=== PATIENT | male | born 1955 | race Caucasian/White ===

== ENCOUNTER → 2021-11-14 09:26 | Outpatient (BNVA) | payer OTHER, SELFPAY | PROVIDERS: PCP Nurse Practitioner Family; Visit Provider Orthopaedic Surgery | DX: Z20.822 Contact with and (suspected) exposure to COVID-19 (principal) | CPT/HCPCS: 87635 ==

== ENCOUNTER 2021-11-21 16:24 | Observation (INO) | payer OTHER, SELFPAY ==
--- NOTE | 2021-11-19 12:46 | ECG_ITS ---
[facility] Test Date: 2021-11-19 Pat Name: Giovanni Boudreaux Department: Room: Gender: Male Cost Estimator: : 1955 Requested By: Lori Lara Order Number: [id number] Marlen MD: Abdullahi Bardales M.D. 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 [id number]
--- NOTE | 2021-11-19 13:11 | ANES.PREANE2 ---
Pre-Anesthetic Assessment Height/Weight: Height 1.78 m Weight 136.078 kg Preop Diagnosis: Spondylolisthesis L4-5 with lumbar stenosis L5-S1 Operation Date: 11/21/21 07:00 Proposed Procedures p Posterior Lumbar Interbody Fusion L4/5,L5/S1 [id number](Not Applicable) - David Rogers, DO Was Beta Jacobo taken within 24 hours: Yes (Patient instructed to take atenolol on DOS) Was Clonidine taken within 24 hours: N/A Social No alcohol and No tobacco Exam alert, oriented x 3 and regular rate & rhythm Breath sounds diminished b/l Airway Submandibular: within normal limits Cervical ROM: within normal limits Mallampati: Class III Dentition: chipped Comments: Comments: Missing teeth Pulmonary STOP BANG score of 7, never completed a sleep study advised by [facility] CV/HEM None reported METS = 4 None reported Hepatic None reported GI Gastroesophageal Reflux Disease Metabolic Morbid Obesity Musc/skel Osteoarthritis/DJD Neurogenic claudication Neuropsych Difficulty sleeping Anesthetic Plan ASA status: 3 (66 year old male with morbid obesity and limited functional capacity due to pain as well as high suspicion for NELY) Anesthesia: Anesthesia Evaluation and General Other: We discussed risk and benefits of general anesthesia including PONV, sore throat (sometimes severe), corneal abrasion, positioning and peripheral nerve injuries, life threatening allergic reaction, post operative ICU admission requiring prolonged intubation, stroke, heart attack, , and rare incidences of recall. Patient consents to proceed with general anesthesia. Risk of > 500 ml blood loss (7ml/kg in children): No Medications/Allergies Home Medications Medication Instructions Recorded Confirmed Last Taken Type allopurinol 100 mg tablet 200 mg PO DAILY 10/25/21 11/19/21 Unknown History atenolol 25 mg tablet 12.5 mg PO DAILY 10/25/21 11/19/21 Unknown History losartan 100 mg tablet 100 mg PO DAILY 10/25/21 11/19/21 Unknown History ropinirole 3 mg tablet 6 mg PO BEDTIME 10/25/21 11/19/21 Unknown History sildenafil 100 mg tablet 100 mg PO DAILY PRN 10/25/21 11/19/21 Unknown History amlodipine 10 mg tablet 10 mg PO DAILY 11/19/21 11/19/21 Unknown History Allergies Allergy/AdvReac Type Severity Reaction Status Date / Time hydrochlorothiazide Allergy Unknown UNKNOWN Verified 10/25/21 10:01 lisinopril Allergy Unknown UNKNOWN Verified 10/25/21 10:01 [facility] Anesthesia Social History Smoking and tobacco status: former smoker (20 years ) Data Anesthesia : 11/19/21 12:54 Cardiac Studies: No Data to Display
[2021-11-19 13:33] LABS: Basophils # 0.1 10^3/uL (0.0-0.1); Basophils % 1.1 %; Eosinophils # 0.2 10^3/uL (0.0-0.8); Eosinophils % 2.2 %; Hematocrit 45.8 % (42.0-52.0); Hemoglobin 15.3 g/dL (11.7-16.6); Lymphocytes # 1.8 10^3/uL (0.8-4.8); Mean Corpuscular HGB Conc 33.4 g/dL (30.0-36.0); Mean Corpuscular Hemoglobin 30.6 pg (28.0-34.0); Mean Corpuscular Volume 91.6 fl (80-94); Mean Platelet Volume 10.2 fL (7.4-10.4); Monocytes # 0.6 10^3/uL (0.2-0.9); Monocytes % 6.6 %; Neutrophils # 6.11 10^3/uL (1.8-7.7); Neutrophils % 69.6 %; Nucleated Red Blood Cells % 0 %; Platelet Count 260 10^3/cmm (130-400); Red Cell Distribution Width 13.7 % (12.1-15.1); White Blood Count 8.8 10^3/uL (4.0-10.0)
[2021-11-21] VITALS (16 sets, daily range): BP systolic 108–149; BP diastolic 64–93; PULSE 65–92; RESP 16–19; TEMP 36.2–36.7; O2SAT 91–99; BMI 46.7
--- NOTE | 2021-11-21 | SCC_ITS ---
Procedure done: 1.? L4/5 Interbody fusion with posterolateral fusion 2.? L5/S1 Interbody fusion with posterolateral fusion 3.? Instrumentation L4-S1 4. Cage at L4/5 5. Cage L5/S1 6. Laminectomy L4 for purpose of decompression of nerve 7. Laminectomy L5 for purpose of decompression of nerve 8. use of autograft from same incision 9. allograft 10. Bone marrow aspirate from right iliac crest through separate incision in fascia 11.? use of computer navigation/ stereotactic for spine 2 seconds of fluoroscopic guidance, for a cumulative dose of 88.7 mGy, was provided to Dr. Rogers by the radiology department. C-arm images of the lumbar spine were saved for the patient's permanent record. MATTHIEUD
--- NOTE | 2021-11-21 | XR_ITS ---
WS: [id number] Lumbar spine, C-arm fluoroscopy, 11/21/2021 Clinical Data: spinal stenosi with neurogenic claudication Comparison: None. Findings: Dr. Rogers performed a posterior lumbar fusion. XR/XR lumbar spine 2-3V* [id number] Impression: Posterior lumbar fusion.
[2021-11-21] MEDS: sodium chloride 0.9% 1,000 ML 30 ML IV (08:46)
--- NOTE | 2021-11-21 08:47 | P.ANESUD_ITS ---
Pre-Anesthetic Update Pre-Anesthetic Assessment: Date of Surgery/Procedure: 11/21/21 Preop Katheryn gnosis: Spondylolisthesis L4-5 with lumbar stenosis L5-S1 Proposed Procedure: Operation Date: 11/21/21 10:10 Proposed Procedures p Posterior Lumbar Interbody Fusion L4/5,L5/S1 [id number](Not Applicable) - David Rogers, DO Any changes to Pre-Anesthetic Assessment?: No Last Intake: Intake Last Liquid Date 11/20/21 Last Liquid Time 18:00 Last Solid Date 11/20/21 Last Solid Time 18:00 Labs Last 48hrs: Short CBC 11/19/21 Range/Units 12:54 WBC 8.8 (4.0-10.0) 10^3/ uL Hgb 15.3 (11.7-16.6) g/dL Hct 45.8 (42.0-52.0) % MCV 91.6 (80-94) fl Plt Count 260 (130-400) 10^3/c mm Neut % (Auto) 69.6 % Neut # (Auto) 6.11 (1.8-7.7) 10^3/u L Blood Bank 11/19/21 12:54 Blood Type A Positive Rho(D) Type Positive Antibody Screen Negative Vitals: Temperature 97.8 F 11/21/21 08:09 Temperature Source Temporal Artery S can 11/21/21 08:09 Pulse Rate 69 11/21/21 08:09 Pulse Rhythm 11/21/21 08:21 Pulse Strength 3+ Normal 11/21/21 08:21 Respiratory Rate 18 11/21/21 08:09 Blood Pressure 149/93 11/21/21 08:09 Blood Pressure Doris n 111 11/21/21 08:09 Pulse Oximetry 96 11/21/21 08:09 Oxygen Delivery Me thod 11/21/21 08:21 Exam: Pre-Anes Outpt Exam: alert, oriented x 3, clear to auscultation bilaterally and regular rate & rhythm Cardiac Studies: No Data to Display
--- NOTE | 2021-11-21 09:40 | W.PM.OPSUD ---
Surgery/Procedure H&P Update DATE OF PROCEDURE: November 21, 2021 DATE H&P PERFORMED: 10/25/21 H&P UPDATE INFORMATION: I have reviewed H&P completed within last 30 days and I have examined patient prior to procedure PREOP DIAGNOSIS: Spondylolisthesis L4-5 with lumbar stenosis L5-S1 PLANNED PROCEDURE: Operation Date: 11/21/21 10:10 Proposed Procedures p Posterior Lumbar Interbody Fusion L4/5,L5/S1 [id number]/(Not Applicable) - David Rogers DO
--- NOTE | 2021-11-21 10:56 | P.ANES_ITS ---
Anesthesia Procedures Procedure/Date: 11/21/21 Arterial Line: Time Out Performed: Yes Consent: from patient Size (Gauge): 20 Technique Used: other (US) Post-Procedure: dry sterile dressing placed Patient Tolerated Procedure: well Complications: none Site: left and radial Additional Comments: After sterile prep, using sterile technique, and using real time US guidance for vessel selection an 20 g radial arterial was inserted with real time visuali zation of needle entry and real time visualization of catheter advancement. Tolerated well. 1 attempt.
--- NOTE | 2021-11-21 10:56 | ANES.PROC ---
Anesthesia Procedures Procedure/Date: 11/21/21 Procedure Narrative: After sterile prep and using real time US guidance for vessel selection an 16 g PIV was inserted with real time visualization of needle entry and real time visualization of catheter advancement. Tolerated well. 1 attempt.
[2021-11-21] MEDS: vancomycin 1,000 MG SDV 1000 MG XX (12:02)
[2021-11-21] MEDS: heparin, porcine 1,000 unit/mL INJ 10 mL 10000 UNIT XX (12:03)
--- NOTE | 2021-11-21 14:03 | PM.OP ---
Operative Report Date of procedure: November 21, 2021 Pre-op diagnosis: Preop Diagnosis Spondylolisthesis L4-5 with lumbar stenosis L5- S1 with neurogenic claudication Post-op diagnosis: same Procedure done: 1.? L4/5 Interbody fusion with posterolateral fusion 2.? L5/S1 Interbody fusion with posterolateral fusion 3.? Instrumentation L4-S1 4. Cage at L4/5 5. Cage L5/S1 6. Laminectomy L4 for purpose of decompression of nerve 7. Laminectomy L5 for purpose of decompression of nerve 8. use of autograft from same incision 9. allograft 10. Bone marrow aspirate from right iliac crest through separate incision in fascia 11.? use of computer navigation/ stereotactic for spine Surgeon: David Rogers Pastry Sous Chef: Familia Dolan Pastry Sous Chef: The ophthalmic surgical assistant, Familia Dolan, PAC was needed for his expertise under the microscope. He was important and necessary throughout the procedure to complete in a safe and timely manner. He assisted with patient positioning prepping and draping tissue retraction suctioning of the operative field protection of the dural sac and tissue closure Estimated blood loss (mL): 200 Procedure: 1.? L4/5 Interbody fusion with posterolateral fusion 2.? L5/S1 Interbody fusion with posterolateral fusion 3.? Instrumentation L4-S1 4. Cage at L4/5 5. Cage L5/S1 6. Laminectomy L4 for purpose of decompression of nerve 7. Laminectomy L5 for purpose of decompression of nerve 8. use of autograft from same incision 9. allograft 10. Bone marrow aspirate from right iliac crest through separate incision in fascia 11.? use of computer navigation/ stereotactic for spine Patient is brought to the operative suite.? After undergoing anesthesia, the patient had neuro monitoring attached.? Patient was then placed in the prone position on the David table.? All areas of impingement were well-padded.? Patient was then prepped and draped in the normal sterile fashion.? Skin incision was then made from L5-S1.? Subperiosteal dissection was made out to the transverse processes of L4 and L5 and sacral Ala bilaterally.? Once the exposure was complete attention was then brought to bone marrow aspirate. The bone marrow aspirate kit was used to aspirate bone marrow aspirate.? This was done by using the sharp probe to open up the bone.? Aspiration was performed and then the blunt probe was then used to dissect down to through the bone tunnel.? An aspirating well drawn back a millimeter approximately 20 cc of bone marrow aspirate was used.? And mixed with the allograft and autograft bone that will be used. Next attention was brought to placing the computer navigation fiducial.? This was done by drilling 2 K wires into the iliac crest on the right side.? And then attaching the fiducial.? The C-arm was then brought in and then spun around the patient.? This information was then loaded the computer and loaded into the fiducials. The technique for placing the pedicle screws was to use a drill followed by the gearshift probe next to the computer navigation? Followed by the ball probe to feel the superior inferior medial lateral kidd of the pedicles linked to the computer navigation? Then placement of the screws.? Was done at each pedicle.? Screws were placed at L4, L5 and S1 bilaterally.? Next attention was brought to performing the laminectomy ofL4.? This was done using the high-speed bur Kerrisons and curettes.? Once the lamina was removed and then attention was brought to performing a partial facetectomy on the contralateral side.? This was done again using the high-speed bur curettes and Kerrisons.? The ligamentum flavum was taken down bilaterally from L4 to L5.? Attention was then brought to the facet on the ipsilateral side.? The facet was taken down.? The L5 nerve was decompressed as it passed around the L5 pedicle.? The laminectomy was done for purposes of decompressing the nerve as well as placement of the cage.? The L4 nerve was identified as it traversed through the L4/5 foramen.? The thecal sac was identified and retracted.? The L4/5 disc base was identified.? Using a knife the disc base was opened.? And then sequential melisa were placed.? The first shaver was a 6 and the last shaver was a 12.? Using a pituitary and down going curette the endplates were scraped and disc material was removed from the space.? Once adequate decompression of the disc base was felt to be had.? Osteoamp sponge was packed into the anterior aspect of the disc base.? Then a size 12 cage from [employer] was placed after packing osteoamp into the cage.? While placing the cage the thecal sac and L5 nerve was protected.? C arm was used to ensure that the cages placed in the appropriate position. Next attention was brought to performing the laminectomy ofL5.? This was done using the high-speed bur Kerrisons and curettes.? Once the lamina was removed and then attention was brought to performing a partial facetectomy on the contralateral side.? This was done again using the high-speed bur curettes and Kerrisons.? The ligamentum flavum was taken down bilaterally from L5 to s1.? Attention was then brought to the facet on the ipsilateral side.? The facet was taken down.? The S1 nerve was decompressed as it passed around the S1 pedicle.? The laminectomy was done for purposes of decompressing the nerve as well as placement of the cage.? The L5 nerve was identified as it traversed through the L5/S1 foramen.? The thecal sac was identified and retracted.? The L5/S1 disc base was identified.? Using a knife the disc base was opened.? And then sequential melisa were placed.? The first shaver was a 6 and the last shaver was a 11.? Using a pituitary and down going curette the endplates were scraped and disc material was removed from the space.? Once adequate decompression of the disc base was felt to be had.? Osteoamp sponge was packed into the anterior aspect of the disc base.? Then a size 11 cage from [employer] was placed after packing osteoamp into the cage.? While placing the cage the thecal sac and S1 nerve was protected.? C arm was used to ensure that the cages placed in the appropriate position. The fiducial pins were removed. Attention was then brought to attaching the rods to the screws placed in the L4 to S1 bilaterally.? Caps were torqued into position. Locking the construct in place. Wound was copiously irrigated and then attention was brought to decorticating the facets and transverse processes laterally.? Bone that was taken down from the lamina was used along with osteoamp fibers and sponges were packed into the lateral gutters along the facet joints.? This was done bilaterally. Wound was then closed in a layered fashion starting with the thoracolumbar fascia.? 0-vicryl was used the sub cutaneous tissue was closed with 2-0 vicryl and skin with 4-0 monocryl.? Glue was then used to seal the skin and a steril dressing was applied.? Patient was then placed in the supine position. The endotracheal tube was removed and patient was transferred to the PACU in stable condition.
[2021-11-21 15:11] LABS: Glucose Point of Care 151 mg/dL (70-110)
--- NOTE | 2021-11-21 16:08 | ANE.PACU2 ---
Inpatient post-anesthesia follow up: Airway intact: Yes Vital signs: Temperature 97.1 F Pulse Rate 72 Respiratory Rate 16 Blood Pressure 120/71 Pulse Oximetry 93 Oxygen Delivery Me thod Nasal Cannula Oxygen Flow Rate 2 Fraction of Inspir ed Oxygen Hydration adequate: Yes Nausea and vomiting: No Pain level: 3 Mental status: Baseline
[2021-11-21] MEDS: docusate sodium 100 mg Capsule PO (18:39)
[2021-11-21] MEDS: lactated ringers 1,000 ML 90 ML IV (20:28)
[2021-11-21] MEDS: ropinirole 2 mg Tablet 6 MG PO (20:57)
[2021-11-21] MEDS: HYDROcodone-acetaminophen 5-325 mg Tablet PO (20:57)
[2021-11-21] MEDS: ondansetron 2 mg/ML SDV 2 mL 4 MG IVP (20:58)
[2021-11-21] MEDS: ketorolac 30 mg/mL INJ IVP (23:46)
[2021-11-22] VITALS: BP 145/82; PULSE 71; RESP 20; TEMP 36.8; O2SAT 94
[2021-11-22 03:56] VITALS: BP 145/76; PULSE 77; RESP 19; TEMP 37.2; O2SAT 94
[2021-11-22] MEDS: enoxaparin 40 mg/0.4 mL Syringe SUBCUT (05:44)
[2021-11-22] MEDS: HYDROcodone-acetaminophen 5-325 mg Tablet PO (08:18)
[2021-11-22] MEDS: losartan 50 mg Tablet 100 MG PO (08:20)
[2021-11-22] MEDS: atenolol 50 mg Tablet 12.5 MG PO (08:21)
[2021-11-22] MEDS: docusate sodium 100 mg Capsule PO (08:21)
[2021-11-22] MEDS: allopurinol 100 mg Tablet 200 MG PO (08:21)
[2021-11-22] MEDS: amlodipine 10 mg Tablet PO (08:21)
--- NOTE | 2021-11-22 08:21 | PM.PN ---
Subjective Subjective: POD 1 Patient feeling much better family is present this morning. Patient has mild back pain. Denies any shortness of breath, chest pain, headaches. Vitals/I&O/Wt Last Vital Signs Temp 98.9 F 11/22/21 03:56 Pulse 77 11/22/21 03:56 Resp 19 H 11/22/21 03:56 BP 145/76 11/22/21 03:56 Pulse Ox 94 11/22/21 03:56 11/21/21 11/22/21 11/22/21 22:59 06:59 14:59 Intake Total 60 / 1820 680 / 2500 60 / 60 Output Total 90 / 990 1150 / 2140 Balance -30 / 830 -470 / 360 60 / 60 Weight last 48 hrs Weight 325 lb 14.4 oz Physical Exam Narrative: Patient presents alert and oriented x3 with a good general appearance normal normal affect. Normal coordination normal stability. Mild tenderness around the incisional site with the incision appear to be clean and dry. No signs of erythema or drainage. No signs of infection. Patient denies any fevers or chills. 5/5 motor strength both lower extremities with negative straight leg raise bilaterally. Calves are supple no medial thigh tenderness. Pulses are 2+ at the dorsalis pedis and posterior tibial region. Good capillary refill throughout normal sensation light touch both lower extremities. Urinary Catheter Management: Levin: Cath Placed During This Visit: yes, but has since been removed by the nurse Reason for Continuing Indwelling Catheter: Perioperative Use in Selected Surgeries Urinary Catheter Date of Insertion: 11/21/21 Urinary Catheter Time of Insertion: 10:50 Date Urinary Catheter Removed: 11/22/21 Time Urinary Catheter Discontinued: 06:00 Data : 11/19/21 12:54 A&P Assessment and plan (1) Status post lumbar spinal fusion: Physical therapy to evaluate and mobilize. Continue the abdominal binder when he is ambulatory. Discontinue Hemovac drain with dressing change using a Silverlon dressing. Discharge home later this morning. Discussed continued walking program be cautious with bending lifting or twisting activities. We will see him back in the office in 1 to 2 weeks for wound check and suture removal. The was present during the exam as well and understands. Encouraged him to use the incentive spirometry at home. Discussed at length with them also finding a primary care physician to help treat him medically. Status: Acute Attestations Medical Necessity Statement*: dc home today Procedures Arterial Line Size (Gauge): 20 Coding Level of Care Code Acute Special Machine Operator for Chg Fwd Diagnoses Status post lumbar spinal fusion Z98.1
[2021-11-22 08:55] VITALS: BP 141/79; PULSE 79; RESP 20; TEMP 36.6; O2SAT 94
--- NOTE | 2021-11-22 10:23 | PC.CHAP ---
Pastoral Care Encounter/Spiritual Assessment Type of Contact [] Declined forming operator visit [] Patient/Family/Request visit [] Outpatient visit [] Follow-up visit [] Physician referral [] Code/Alert [x] Routine visit [] Staff referral [] Actively dying [] Patient sleeping [] Family support [] [] Out of room [] Palliative care [] [x] Receiving care in room [] Pre-surgical visit [] Trauma [] Long length of stay [] ICU visit [] Other: Relational/Emotional Strength [x] Patient feels connected with others/family/visitors/staff [] Distress [] Loneliness/isolation [] Abandonment Spirituality of Patient [x] Person of Colleen [] Attends Rastafarian of their Colleen [x] Believes in Prayer [] Reads Bible or Orthodoxy materials [] There are Spiritual issues to be addressed Janitorial Services Supervisor Interventions [x] Prayer [x] Active listening [x] Non-anxious presence [x] Spiritual/emotional support [] Crisis/trauma care [x] Spiritual counseling [] Bereavement support [] Provided bereavement packet [] Provided Bible/devotional materials [] Provided toy/stuffed animal, coloring book to patient or family member [] Provided Communion [] Anointing/[place] [] Salvation [x] Completed spiritual assessment [] Other: Impact on Illness or Injury [] Angry [] Fearful [x] Anxious [] Often cries [] Exhaustion [] Unable to work [] Unable to attend yazdanism [] Unable to walk/stand [] Unable to read [] Unable to drive [] Unable to eat/drink [] Unable to sleep [] Unable to be with family [] Patient intubated [] Other: Summary had back alexander feels good postive attitude going home and some recovery at home Time spent with patient 10 mins
--- NOTE | 2021-11-22 12:01 | PC.NURSE ---
patient and verbalized understanding of discharge instructions, home medications, and follow up appointment. Hemovac removed prior to discharge and patient tolerated well.
[2021-11-22 12:11] VITALS: BP 141/79; PULSE 79; RESP 20; TEMP 36.6; O2SAT 94
--- NOTE | 2021-11-26 12:13 | P.DS_ITS ---
Discharge Providers Date of Admission: 11/21/21 16:24 Date of Discharge: November 22, 2021 Attending Provider at Admission: David Rogers DO Attending Provider at Discharge: David Rogers DO Primary Care Provider: King Ashley Diagnoses at Discharge Discharge Diagnosis (1) Status post lumbar spinal fusion: Status: Acute Reason for Visit Reason for Visit: SPINAL STENOSIS WITH NEUROGENIC CLAUDICATION Physical Exam Urinary Catheter Management: Levin: Cath Placed During This Visit: yes, but has since been removed by the nurse Reason for Continuing Indwelling Catheter: Perioperative Use in Selected Lerner rgeries Urinary Catheter Date of Insertion: 11/21/21 Urinary Catheter Time of Insertion: 10:50 Date Urinary Catheter Removed: 11/22/21 Time Urinary Catheter Discontinued: 06:00 Discharge Data Studies Completed and Pending Completed Studies During Hospitalization Category Date Time Status XR lumbar spine 2-3V* [id number] Routine Exams 11/21/21 Completed Radiology Impressions Lumbar Spine X-Ray 11/21/21 00:00 Impression: Posterior lumbar fusion. Laboratory Results WBC 8.8 10^3/uL (4.0-10.0) 11/19/21 12:54 RBC 5.00 10^6/uL (4.1-5.3) 11/19/21 12:54 Hgb 15.3 g/dL (11.7-16.6) 11/19/21 12:54 Hct 45.8 % (42.0-52.0) 11/19/21 12:54 MCV 91.6 fl (80-94) 11/19/21 12:54 MCH 30.6 pg (28.0-34.0) 11/19/21 12:54 MCHC 33.4 g/dL (30.0-36.0) 11/19/21 12:54 RDW 13.7 % (12.1-15.1) 11/19/21 12:54 Plt Count 260 10^3/cmm (130-400) 11/19/21 12:54 MPV 10.2 fL (7.4-10.4) 11/19/21 12:54 Neut % (Auto) 69.6 % 11/19/21 12:54 Lymph % (Auto) 20.0 % 11/19/21 12:54 [place] % (Auto) 6.6 % 11/19/21 12:54 Eos % (Auto) 2.2 % 11/19/21 12:54 Baso % (Auto) 1.1 % 11/19/21 12:54 Neut # (Auto) 6.11 10^3/uL (1.8-7.7) 11/19/21 12:54 Lymph # (Auto) 1.8 10^3/uL (0.8-4.8) 11/19/21 12:54 [place] # (Auto) 0.6 10^3/uL (0.2-0.9) 11/19/21 12:54 Eos # (Auto) 0.2 10^3/uL (0.0-0.8) 11/19/21 12:54 Baso # (Auto) 0.1 10^3/uL (0.0-0.1) 11/19/21 12:54 Nucleated RBC % (auto) 0 % 11/19/21 12:54 Nucleated RBCs # 0.0 /100WBC 11/19/21 12:54 POC Glucose 151 mg/dL (70-110) H 11/21/21 15:07 Blood Type A Positive 11/19/21 12:54 Rho(D) Type Positive 11/19/21 12:54 Antibody Screen Negative 11/19/21 12:54 Vitals Last Vital Signs Temp 97.8 F 11/22/21 12:11 Pulse 79 11/22/21 12:11 Resp 20 H 11/22/21 12:11 BP 141/79 11/22/21 12:11 Pulse Ox 94 11/22/21 12:11 Discharge Plan Discharge Patient Disposition: Home Condition: Stable Prescriptions: New hydrocodone-acetaminophen 5-325 mg tablet 1 tab PO Q4H Qty: 40 0RF Continued allopurinol 100 mg tablet 200 mg PO DAILY 0RF atenolol 25 mg tablet 12.5 mg PO DAILY 0RF losartan 100 mg tablet 100 mg PO DAILY 0RF ropinirole 3 mg tablet 6 mg PO BEDTIME 0RF sildenafil 100 mg tablet 100 mg PO DAILY PRN (Reason: Erectile Dysfunction) 0RF Rx Instructions: administer 30 minutes to 4 hours before activity amlodipine 10 mg Tablet 10 mg PO DAILY 0RF Discharge Orders: Discharge Order (Routine); Ordered 11/22/21 Ordered By: Familia Dolan Referrals: Sue,David H, DO [Physician] - 11/29/21 2:45 am Discharge Diet: Advance as tolerated Patient Instructions: Hydrocodone/Acetaminophen (By mouth) (Vicodin, [place], Lortab), Lumbar Spinal Fusion (DC), Opioid Safety Discharge Attestations Time Spent in Discharge Care*: less than 30 min Quality Metrics Clinical Quality Measures [ No reported AMI, CVA or VTE this stay] Coding Level of Care Code Acute Chg FW DC note Diagnoses Status post lumbar spinal fusion Z98.1
== END 2021-11-22 11:47 | disposition home or self-care (01) ==
LOC: MEDSURG 16:24
PROVIDERS: Anesthesiology; Admitting Provider Orthopaedic Surgery; PCP Nurse Practitioner Family; Visit Provider Orthopaedic Surgery
PROC: (CPT 22612; principal; 2021-11-21 10:10)
DX: M48.062 Spinal stenosis, lumbar region with neurogenic claudication (principal); E66.01 Morbid (severe) obesity due to excess calories; Z68.42 Body mass index [BMI] 45.0-49.9, adult; K21.9 Gastro-esophageal reflux disease without esophagitis; Z87.891 Personal history of nicotine dependence
CPT/HCPCS: 20930; 20936; 20939; 22633; 22634; 22842; 22853 ×2; 61783; 63052; 63053; 36410; 36415; 36416; 36620; 51702; 72100; 76000; 76937; 82962; 85025; 86850; 86900; 93005; 96372; 97161; 97530; C1713; C9359; G0378; J0330; J0690; J1170; J1644; J1650; J1885; J2250; J2405; J2704; J3010; J3370; J3490; J7030

== ENCOUNTER → 2022-01-08 13:05 | Outpatient (BNVA) | payer OTHER, SELFPAY | PROVIDERS: PCP Nurse Practitioner Family; Visit Provider Orthopaedic Surgery | DX: Z47.89 Encounter for other orthopedic aftercare (principal); Z98.890 Other specified postprocedural states; Z98.1 Arthrodesis status | CPT/HCPCS: 72110; 99024 ==

== ENCOUNTER → 2022-02-19 14:27 | Outpatient (BNVA) | payer OTHER, SELFPAY | PROVIDERS: PCP Nurse Practitioner Family; Visit Provider Orthopaedic Surgery | DX: Z47.89 Encounter for other orthopedic aftercare (principal); Z98.890 Other specified postprocedural states; Z98.1 Arthrodesis status | CPT/HCPCS: 72100; 99024 ==

== ENCOUNTER 2022-04-03 20:00 | Outpatient (CLI) | payer OTHER, SELFPAY | END 2022-04-03 20:01 | disposition home or self-care (01) | LOC: SLEEP 04-04 08:32 | PROVIDERS: PCP Nurse Practitioner Family; Visit Provider Physician Assistant | DX: G47.33 Obstructive sleep apnea (adult) (pediatric) (principal) | CPT/HCPCS: 95810 ==

== ENCOUNTER 2022-05-23 20:00 | Outpatient (CLI) | payer OTHER, SELFPAY | END 2022-05-23 20:01 | disposition home or self-care (01) | LOC: SLEEP 05-24 06:34 | PROVIDERS: PCP Nurse Practitioner Family; Visit Provider Physician Assistant | DX: G47.33 Obstructive sleep apnea (adult) (pediatric) (principal) | CPT/HCPCS: 95811 ==